=== PATIENT | female | born 1965 ===

== ENCOUNTER 2018-01-07 13:39 | Emergency (ER) | payer OTHER ==
[2018-01-07 14:13] VITALS: BP 142/72
[2018-01-07] MEDS ORDERED: Fluorescein Sod TOPICAL 0.6* 0.6 MG TEST OPHTHALMIC ONE ×2 (14:37)
[2018-01-07] MEDS ORDERED: Tetracaine 0.5% OPTH.SOL 4 ML* 1 DROP BTL ONE (14:38)
[2018-01-07] MEDS ORDERED: BSS OPTH.SOL* BTL ONE (14:38)
--- NOTE | 2018-01-07 14:41 | ED ---
Skin Complaint - HPI Summary HPI Summary: 52-year-old female with history of arthritis, hypothyroidism, presents with gradual onset pain, itchiness, and rash located at the left upper temporal area then initially started out as small bug bite that became increasingly itchy and painful with increasing redness. Has gotten gradually worse over the past 5 days. Denies any changes in vision, eye drainage, eye symptoms, changes in vision, or fever. Patient also complains of minimal tenderness along the adjacent areas of the left upper forehead. No nausea or vomiting. No prior episodes. No remitting or worsening factors. - History of Current Complaint Chief Complaint: UCSkin Time Seen by Provider: 01/07/18 14:22 Stated Complaint: SKIN COMPLAINT (BITE) Pain Intensity: 2 - Allergy/Home Medications Allergies/Adverse Reactions: Allergies Allergy/AdvReac Type Severity Reaction Status Date / Time amoxicillin Allergy Intermediate Rash Verified 01/07/18 14:01 Home Medications: Home Medications Lidocaine PATCH 5%* [Lidoderm 5% Patch*] 1 patch TID PRN 01/07/18 [History Confirmed 01/07/18] Medical Cannabis 1 DAILY 01/07/18 [History] Prazosin CAP* [Minipress CAP*] 1 tab QPM 01/07/18 [History Confirmed 01/07/18] lamoTRIgine TAB(*) [Lamictal TAB(*)] 200 mg QAM 01/07/18 [History Confirmed ] PMH/Surg Hx/FS Hx/Imm Hx Endocrine/Hematology History: Reports: Hx Thyroid Disease Denies: Hx Diabetes Cardiovascular History: Denies: Hx Hypertension, Hx Pacemaker/ICD History: Denies: Hx Renal Disease Musculoskeletal History: Reports: Hx Rheumatoid Arthritis - in back Sensory History: Denies: Hx Hearing Aid Psychiatric History: Denies: Hx Panic Disorder - Surgical History Surgery Procedure, Year, and Place: LT FOOT SURGERY, hysterectomy. 2 C SECTIONS. BREAST REDUCTION. 09/17/2016 Discectomy Infectious Disease History: No Infectious Disease History: Denies: Traveled Outside the [place] in Last 30 Days - Family History Known Family History: Negative: Diabetes - Social History Alcohol Use: Daily Alcohol Amount: w/ dinner; 4xweek Substance Use Type: Reports: None Smoking Status (MU): Never Smoked Tobacco Review of Systems Positive: Rash All Other Systems Reviewed And Are Negative: Yes Physical Exam - Summary Physical Exam Summary: Gen: alert, in no acute distress HEENT: EOMI, normocephalic, atruamatic. Fluorescein exam negative. No evidence of pseudo-dendritic appearance. No hyphema, no hypopyon. Neck: supple, no masses CV: Normal s1 s2, no murmurs Resp: normal breath sounds b/l GI: no tenderness, no masses Musculoskeletal: normal ROM all 4 extremities Skin: Small ovoid area of erythema along the left upper forehead and temporal area with slight vesicular appearance. No pus drainage. No lesions in the ear canal or on the tip of the nose. Lymph: no lymphadenopathy Psych: appropriate affect, oriented Vital Signs On Initial Exam: Initial Vitals Temp Pulse Resp BP Pulse Ox 37.2 C 69 16 142/72 100 01/07/18 14:05 01/07/18 14:05 01/07/18 14:05 01/07/18 14:05 01/07/18 14:05 Diagnostics - Vital Signs Vital Signs Temp Pulse Resp BP Pulse Ox 01/07/18 14:05 37.2 C 69 16 142/72 100 - Laboratory Lab Statement: Any lab studies that have been ordered have been reviewed, and results considered in the medical decision making process. Course/Dx - Course Course Of Treatment: Based on my examination, it is unclear whether or not her symptoms are due to a bacterial cellulitis or possible early manifestation of facial zoster. Denies any changes in vision, antibiotics and antivirals prescribed, started to report to the emergency department if no improvement or if she has any worsening or concerning symptoms. Agrees and understands discharge instructions. Vital signs within normal limits. - Diagnoses Provider Diagnoses: Atypical facial pain Discharge - Sign-Out/Discharge Documenting (check all that apply): Patient Departure All imaging exams completed and their final reports reviewed: No Studies - Discharge Plan Condition: Stable Disposition: HOME Prescriptions: DOXYcycline CAP(*) [DOXYcycline 100MG CAP(*)] 100 mg PO BID #14 cap ValACYclovir (*) [Valtrex 1 GM(*)] 1 gm PO TID #21 tab Patient Education Materials: Shingles (ED), Cellulitis (DC) Referrals: Clyde Shaw [Primary Care Provider] - Additional Instructions: PLEASE FINISH FULL COURSE OF MEDICATIONS PLEASE MAKE AN APPOINTMENT TO BE SEEN BY A PRIMARY CARE DOCTOR WITHIN 1-2 WEEKS PLEASE REPORT TO THE ER FOR ANY WORSENING OR CONCERNING SYMPTOMS - Billing Disposition and Condition Condition: STABLE Disposition: Home
== END 2018-01-07 15:06 | disposition home or self-care (01) ==
LOC: UCCORT 13:39
DX: G50.1 Atypical facial pain (principal); R21 Rash and other nonspecific skin eruption; Z88.0 Allergy status to penicillin
CPT/HCPCS: 99211; A9270-GY; G0463